=== PATIENT | male | born 1930 | race Caucasian/White ===

== ENCOUNTER 2017-11-09 23:45 | Emergency (ER) | payer OTHER, MEDICARE ==
[~2017-11-09] VITALS: Ht 177.8 cm; Wt 70.0 kg
[2017-11-09 23:47] VITALS: BP 174/84; PULSE 73; RESP 16; TEMP 98.4; O2SAT 95
[2017-11-10 01:11] VITALS: BP 200/103; PULSE 76; RESP 20; O2SAT 96
--- NOTE | 2017-11-10 01:13 | PD ---
HPI Chief Complaint: ENT Complaint Time Seen by Provider: 00:09 Travel History International Travel<30 days: No Contact w/Intl Traveler<30days: No Traveled to known affect area: No History of Present Illness HPI Patient is a 87-year-old male who's had an upper respiratory infections always doctor who gave him Sudafed. Patient flew from [place] today and midflight he felt a pain in his ears bilaterally and then suddenly he says he could not hear. However during my interview with him he can hear me clearly and he doesn' t even have his hearing aids in which she has taken out since the pain came and hasn't put them in until I asked in the [place] during my initial exam. He says he cannot hear but he can hear I asked with his hearing aids in and then he can hear me more clearly. He says is improving. He takes Sudafed from time to time that is not new however the Sudafed plus the pressure of the cabin may have caused his ears to have a pressure increased that may have increased his difficulty in hearing. 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 in his upper outer quadrant on the bilateral [place] to the left lateral gaze PFSH Past Medical History Cancer: Yes (BLADDER ) Cerebrovascular Accident: Yes Diminished Hearing: Yes Past Surgical History Abdominal Surgery: Yes Appendectomy: Yes Social History Alcohol Use: Yes Tobacco Use: No Substance Use: No Allergies-Medications (Allergen,Severity, Reaction): Coded Allergies: acetaminophen (Verified Allergy, Unknown, 11/09/17) oxycodone (Verified Allergy, Unknown, 11/09/17) ramipril (Verified Allergy, Unknown, 11/09/17) Reported Meds & Prescriptions Reported Meds & Active Scripts Active Levaquin (Levofloxacin) 500 Mg Tablet 500 Mg PO DAILY 7 Days Clonidine (Clonidine HCl) 0.1 Mg Tab 0.1 Mg PO BID Meclizine (Meclizine HCl) 25 Mg Tab 25 Mg PO Q6HR PRN Review of Systems Except as stated in HPI: all other systems reviewed are Neg HENT: Positive: Earache, Other (decreased hearing) Physical Exam Narrative GENERAL: non toxic SKIN: Warm and dry. HEAD: Atraumatic. Normocephalic. EYES: Pupils equal and round. No scleral icterus. No injection or drainage. no nystagmus ENT: No nasal bleeding or discharge. Mucous membranes pink and moist. TM normal NECK: Trachea midline. No JVD. CARDIOVASCULAR: Regular rate and rhythm. RESPIRATORY: No accessory muscle use. Clear to auscultation. Breath sounds equal bilaterally. GASTROINTESTINAL: Abdomen soft, non-tender, nondistended. Hepatic and splenic margins not palpable. MUSCULOSKELETAL: Extremities without clubbing, cyanosis, or edema. No obvious deformities. NEUROLOGICAL: Awake and alert. No obvious cranial nerve deficits. Motor grossly within normal limits. Five out of 5 muscle strength in the arms and legs. Normal speech. PSYCHIATRIC: Appropriate mood and affect; insight and judgment normal. Data Data Last Documented VS Vital Signs Date Time Temp Pulse Resp B/P (MAP) Pulse Ox O2 Delivery O2 Flow Rate FiO2 11/10/17 03:26 11/10/17 02:54 67 16 96 Room Air 11/09/17 23:[address] Brain W/O Iv Contrast(Rout) (11/10/17 ) Ct Temporal Bone W/O Iv Cont (11/10/17 ) Diazepam (Valium) (11/10/17 01:30) Electrocardiogram (11/10/17 ) Complete Blood Count With Diff (11/10/17 01:22) Comprehensive Metabolic Panel (11/10/17 01:22) Troponin I (11/10/17 01:22) Magnesium (Mg) (11/10/17 01:22) Clonidine (Catapres) (11/10/17 02:30) Meclizine (Antivert) (11/10/17 03:15) Ed Discharge Order (11/10/17 03:04) Labs Laboratory Tests Test 11/10/17 01:55 White Blood Count 10.2 TH/MM3 Red Blood Count 4.20 MIL/MM3 Hemoglobin 13.0 GM/DL Hematocrit 37.6 % Mean Corpuscular Volume 89.7 FL Mean Corpuscular Hemoglobin 31.0 PG Mean Corpuscular Hemoglobin Concent 34.5 % Red Cell Distribution Width 13.8 % Platelet Count 139 TH/MM3 Mean Platelet Volume 8.0 FL Neutrophils (%) (Auto) 82.1 % Lymphocytes (%) (Auto) 10.0 % Monocytes (%) (Auto) 6.3 % Eosinophils (%) (Auto) 1.3 % Basophils (%) (Auto) 0.3 % Neutrophils # (Auto) 8.4 TH/MM3 Lymphocytes # (Auto) 1.0 TH/MM3 Monocytes # (Auto) 0.6 TH/MM3 Eosinophils # (Auto) 0.1 TH/MM3 Basophils # (Auto) 0.0 TH/MM3 CBC Comment DIFF FINAL Differential Comment Blood Urea Nitrogen 26 MG/DL Creatinine 1.15 MG/DL Random Glucose 98 MG/DL Total Protein 6.9 GM/DL Albumin 3.5 GM/DL Calcium Level 8.4 MG/DL Magnesium Level 2.1 MG/DL Alkaline Phosphatase 84 U/L Aspartate Amino Transf (AST/SGOT) 24 U/L Alanine Aminotransferase (ALT/SGPT) 37 U/L Total Bilirubin 0.5 MG/DL Sodium Level 142 MEQ/L Potassium Level 3.9 MEQ/L Chloride Level 111 MEQ/L Carbon Dioxide Level 25.1 MEQ/L Anion Gap 6 MEQ/L Estimat Glomerular Filtration Rate 60 ML/MIN Troponin I LESS THAN 0.02 NG/ML MDM Medical Decision Making Medical Screen Exam Complete: Yes Emergency Medical Condition: Yes Interpretation(s) EKG is normal sinus rhythm at a rate of 64 Differential Diagnosis CVA [place] vs BPV vs mastoid vs pressure effects of aircabin Narrative Course CT head is negative for any intracranial abnormality CT temporal bone shows fluid bilateral is not in her ears which correlates with his symptoms give the patient meclizine as well as Levaquin by mouth to take and I discharged with clonidine because his pressure is elevated entire time in the ER and to check his pressure every few hours Diagnosis Primary Impression: Middle ear effusion Qualified Codes: H65.93 - Unspecified nonsuppurative otitis media, bilateral Patient Instructions: General Instructions, Hypertension in the Older Adult (ED ) Scripts Levofloxacin (Levaquin) 500 Mg Tablet 500 MG PO DAILY for Infection for 7 Days, #7 TAB 0 Refills Prov: Vicente Pal MD 11/10/17 Clonidine (Clonidine) 0.1 Mg Tab 0.1 MG PO BID for Blood Pressure Management, #10 TAB 0 Refills Prov: Vicente Pal MD 11/10/17 Meclizine (Meclizine) 25 Mg Tab 25 MG PO Q6HR Y for VERTIGO, #15 TAB 0 Refills Prov: Vicente Pal MD 11/10/17 Disposition: 01 DISCHARGE HOME Condition: Good Vicente Pal MD Nov 10, 2017 01:13
[2017-11-10 01:15] VITALS: BP 191/102; PULSE 70; RESP 18; O2SAT 100
[2017-11-10] MEDS ORDERED: DIAZEPAM 2 MG TAB PO ONE (01:30)
--- NOTE | 2017-11-10 01:58 | RADRPT ---
EXAM DATE/TIME: 11/10/2017 01:19 [facility] COMPARISON: No previous studies available for comparison. INDICATIONS : Hearing loss in both ears along with head pain. RADIATION DOSE: 56.35 CTDIvol (mGy) MEDICAL HISTORY : Cerebrovascular disease. Carcinoma, bladder. SURGICAL HISTORY : Appendectomy. ENCOUNTER: Initial ACUITY: 1 day PAIN SCALE: 2/10 LOCATION: cranial TECHNIQUE: Multiple contiguous axial images were obtained of the head. Using automated exposure control and adj ustment of the mA and/or kV according to patient size, radiation dose was kept as low as reasonably a chievable to obtain optimal diagnostic quality images. DICOM format image data is available electro nically for review and comparison. FINDINGS: CEREBRUM: Diffuse marked prominence of the sulci and extra-axial spaces of the frontotemporal regions. Ventricl es are within normal limits.. No evidence of midline shift, mass lesion, hemorrhage or acute infarct ion. No extra-axial fluid collections are seen. POSTERIOR FOSSA: The cerebellum and brainstem are intact. The 4th ventricle is midline. The cerebellopontine angle i s unremarkable. EXTRACRANIAL: Bilateral maxillary sinus air fluid levels right greater than left. Mucosal thickening and mild parti al opacification of the ethmoid sinuses. SKULL: The calvaria is intact. No evidence of skull fracture. CONCLUSION: 1. Prominent frontotemporal atrophy. No acute intracranial findings. 2. Maxillary and ethmoid sinusitis with air-fluid levels in the maxillary sinuses suggesting acute si nusitis. Taz Gallardo MD on November 10, 2017 at 1:54 Board Certified Radiologist. This report was verified electronically.
[2017-11-10 02:00] VITALS: BP 179/93; PULSE 62; RESP 18; O2SAT 96
--- NOTE | 2017-11-10 02:04 | RADRPT ---
EXAM DATE/TIME: 11/10/2017 01:19 [facility] Corrected on: November 17, 2017; Added Radiation dose info [facility] COMPARISON: No previous studies available for comparison. INDICATIONS : Hearing loss in both ears along with head pain. RADIATION DOSE: Reconstructed from previous dataset, no dose MEDICAL HISTORY : Cerebrovascular disease. Carcinoma, bladder. SURGICAL HISTORY : Appendectomy. ENCOUNTER: Initial ACUITY: 1 day PAIN SCORE: 3/10 LOCATION: Bilateral ears TECHNIQUE: Volumetric scanning of the temporal bone was performed. Using automated exposure control and adjustm ent of the mA and/or kV according to patient size, radiation dose was kept as low as reasonably achie vable to obtain optimal diagnostic quality images. DICOM format image data is available electronicall y for review and comparison. FINDINGS: OSSICLES: The ossicles are intact. . MASTOID AIR CELLS: Partially opacified bilaterally with fluid seen in the mastoid air cells bilaterally. MIDDLE EAR: Small amount of middle ear fluid/soft tissue density is identified bilaterally adjacent to the ossicl es. No bone erosion identified. LABYRINTH: The cochlea and semicircular canals are normal in configuration without sclerosis. INTERNAL ACOUSTIC CANAL: Normal in size without erosion. The cerebellar-pontine angle is intact. JUGULAR FOSSA: Normal in size and position. FACIAL CANAL: The tympanic, genu and descending portions are intact. EXTERNAL ACOUSTIC CANAL: The bony and cartilaginous portions are intact. Prominent arthritic findings at C1-2. CONCLUSION: 1. Mild fluid/soft tissue density in the middle years and small to moderate amount of fluid in the ma stoid air cells bilaterally. 2. No bone erosion identified. Ossicles grossly intact. 3. Bilateral acute sinusitis of the maxillary sinuses right greater than left. Moderate severity bila teral ethmoid sinusitis. Taz Gallardo MD on November 10, 2017 at 1:57 Board Certified Radiologist. This report was verified electronically.
[2017-11-10 02:21] LABS: AUTOMATED NEUTROPHIL # 8.4 TH/MM3 (1.8-7.7); BASOPHIL % 0.3 % (0.0-2.0); EOSINOPHIL # 0.1 TH/MM3 (0-0.4); EOSINOPHIL % 1.3 % (0.0-4.0); HEMATOCRIT 37.6 % (39.0-51.0); MEAN CELL VOLUME 89.7 FL (80.0-100.0); MEAN CORPUSCULAR HGB CONC 34.5 % (32.0-36.0); MONO % 6.3 % (0.0-8.0); MONOCYTE # 0.6 TH/MM3 (0-0.9); NEUT % 82.1 % (16.0-70.0); PLATELET COUNT 139 TH/MM3 (150-450); RED CELL DISTRIBUTION WIDTH 13.8 % (11.6-17.2); WHITE BLOOD COUNT 10.2 TH/MM3 (4.0-11.0)
[2017-11-10] MEDS ORDERED: cloNIDine HCL 0.1 MG TAB PO ONE (02:30)
[2017-11-10 02:48] LABS: ALBUMIN 3.5 GM/DL (3.4-5.0); ALT (GPT) 37 U/L (12-78); AST (GOT) 24 U/L (15-37); BICARBONATE 25.1 MEQ/L (21.0-32.0); BLOOD UREA NITROGEN 26 MG/DL (7-18); CALCIUM 8.4 MG/DL (8.5-10.1); CHLORIDE 111 MEQ/L (98-107); CREATININE 1.15 MG/DL (0.60-1.30); GLOMERULAR FILTRATION RATE 60 ML/MIN (>89); GLUCOSE,RANDOM 98 MG/DL (74-106); MAGNESIUM 2.1 MG/DL (1.5-2.5); SODIUM (NA) 142 MEQ/L (136-145)
[2017-11-10 02:53] LABS: ALKALINE PHOSPHATASE 84 U/L (45-117); TOTAL BILIRUBIN ADULT 0.5 MG/DL (0.2-1.0); TOTAL PROTEIN 6.9 GM/DL (6.4-8.2); TROPONIN I LESS THAN 0.02 NG/ML (0.02-0.05)
[2017-11-10 02:54] VITALS: BP 160/78; PULSE 67; RESP 16; O2SAT 96
[2017-11-10] MEDS ORDERED: CLON0.1T PO (03:09)
[2017-11-10] MEDS ORDERED: LEVA500T33 PO (03:09)
[2017-11-10] MEDS ORDERED: MECL-62 PO (03:09)
[2017-11-10] MEDS ORDERED: MECLIZINE HCL 25 MG TAB PO ONE (03:15)
[2017-11-10 03:26] VITALS: BP 148/71
--- NOTE | 2017-11-11 10:07 | EKG ---
Date Performed: 11/10/2017 Time Performed: 02:07:31 PTAGE: 87 years EKG: Sinus rhythm NONSPECIFIC T-WAVE ABNORMALITY BORDERLINE ECG NO PREVIOUS TRACING DOCTOR: Oneida Syed Interpretating Date/Time 11/11/2017 10:06:08
== END 2017-11-10 03:27 | disposition home or self-care (01) ==
LOC: NEPE 23:45
DX: H65.93 Unspecified nonsuppurative otitis media, bilateral (principal)
CPT/HCPCS: 70450; 70480; 80053; 83735; 84484; 85025; 93005; 99285